=== PATIENT | male | born 1960 | race Caucasian/White ===

== ENCOUNTER 2019-04-30 06:59 | Observation (INO) | payer BC ==
[2019-04-30] MEDS ORDERED: Aspirin 81 MG Tab.Chew PO ONE (07:15)
[2019-04-30] MEDS ORDERED: Sodium Chloride 0.9% 2.5 ML Syringe FLUSH PRN (07:17)
[2019-04-30] MEDS ORDERED: Sodium Chloride 0.9% 10 ML Syringe FLUSH PRN (07:17)
--- NOTE | 2019-04-30 07:22 | EDM.PDOC ---
ED HPI GENERAL MEDICAL PROBLEM - General Chief Complaint: Chest Pain Stated Complaint: CHEST PAIN Time Seen by Provider: 04/30/19 07:08 - History of Present Illness INITIAL COMMENTS - FREE TEXT/NARRATIVE: HISTORY AND PHYSICAL: History of present illness: The patient is a 59-year-old male with a history of hypertension hypercholesterolemia tno-oiiomth-dbjodfqjz/requiring diabetes who had a PTCA with stent approximately 3 months ago at [facility] in [place] and follows with Dr. Leone his sr. strategic sourcing manager as well as Dr. Juice Argueta at [facility] and presents today with complaints of not feeling right this morning, lightheadedness and a stabbing left-sided chest pain that started this morning when he was doing his morning activities. The patient says that since he had his stent he has had chest pain on and off more so the last 2 days as his been doing more activities at home and working in the forearm. He says that he never takes the sublingual nitroglycerin he was given by the sr. strategic sourcing manager because he is "peak had it". He said that yesterday while he was doing activities he did have some shortness of breath and some mild discomfort but he kept working and it seemed to go away by itself. He slept all night and woke up this morning and felt fine and was doing his morning activities when he felt somewhat lightheaded and dizzy and then started having this sharp stabbing pain at the left lateral side of his chest wall which radiated to the right chest. He currently rates it as a 4-5/10 but he did not take any nitroglycerin prior to coming here. He is on Plavix and he finished cardiac rehabilitation recently. He has no abdominal complaints such as pain nausea vomiting or diarrhea he currently has no shortness of breath dizziness or lightheadedness but says he doesn't feel quite right. Currently his blood pressure is elevated in the ED and he says that is very high for him. He states compliance with his medication. He has no leg pain or swelling and does not feel that the discomfort he is feeling is musculoskeletal. He says that prior to his cardiac intervention and he didn't really have much chest pain. I did review the patient's nuclear medicine stress test that was performed here the end of November, prior to his cardiac intervention, which did reveal a good ejection fraction in the 50s at rest and diminished ejection fraction with activity. It also revealed multilevel disease. The patient admits was told by his sr. strategic sourcing manager that although he had only one stent placed she did have other areas of disease that did not require stenting. Review of systems: As per history of present illness and below otherwise all systems reviewed and negative. Past medical history: As per history of present illness and as reviewed below otherwise noncontributory. Surgical history: As per history of present illness and as reviewed below otherwise noncontributory. Social history: No reported history of drug or alcohol abuse. Family history: As per history of present illness and as reviewed below otherwise noncontributory. Physical exam: General: Well-developed well-nourished man who is nontoxic and vital signs are noted by me. HEENT: Atraumatic, normocephalic, , negative for conjunctival pallor or scleral icterus, mucous membranes moist, throat clear, neck supple, nontender, trachea midline. Lungs: Clear to auscultation, breath sounds equal bilaterally, chest nontender. I cannot reproduce the pain on palpation Heart: S1S2, regular rate and rhythm no overt murmurs Abdomen: Soft, nondistended, nontender. Negative for masses or hepatosplenomegaly. NABS Pelvis: Stable nontender. Genitourinary: Deferred. Rectal: Deferred. Extremities: Atraumatic, negative for cords or calf pain. Neurovascular unremarkable. No pedal edema or leg asymmetry Neuro: Awake, alert, oriented. Cranial nerves II through XII unremarkable. Cerebellum unremarkable. Motor and sensory unremarkable throughout. Exam nonfocal. Skin: Normal turgor no diaphoresis no overt rashes or lesions Diagnostics: EKG chest x-ray CBC CMP INR troponin Therapeutics: IV O2 monitor aspirin sublingual nitroglycerin and Nitropaste After 2 sublingual nitros the patient's chest pain is gone. We will place Nitropaste and continue to monitor the workup for observation admission 0755: Case was discussed with Dr. Hernandez who accepts the patient for observation admission Impression: Chest pain, history of angioplasty and stent Definitive disposition and diagnosis as appropriate pending reevaluation and review of above. left chest Pain Score (Numeric/FACES): 5 - Related Data Allergies Allergy/AdvReac Type Severity Reaction Status Date / Time No Known Allergies Allergy Verified 04/30/19 07:08 Past Medical History Cardiovascular History: Reports: High Cholesterol, Hypertension Endocrine/Metabolic History: Reports: Diabetes, Type II - Infectious Disease History Infectious Disease History: Reports: None - Past Surgical History Cardiovascular Surgical History: Reports: Coronary Artery Stent Social & Family History - Family History Family Medical History: Noncontributory - Tobacco Use Smoking Status *Q: Never Smoker - Recreational Drug Use Recreational Drug Use: No ED ROS GENERAL - Review of Systems Review Of Systems: ROS reveals no pertinent complaints other than HPI. ED EXAM, GENERAL - Physical Exam Exam: See Below (See dictation) Course - Vital Signs Last Recorded V/S: Last Vital Signs Temp 35.8 C 04/30/19 07:05 Pulse 63 04/30/19 07:37 Resp 18 04/30/19 07:37 BP 153/99 H 04/30/19 07:37 Pulse Ox 99 04/30/19 07:37 - Orders/Labs/Meds Orders: Active Orders 24 hr Category Date Time Status Cardiac Monitoring [RC] . DIRECTED Care 04/30/19 07:15 Active EKG Documentation Completion [RC] STAT Care 04/30/19 07:15 Active Oxygen Therapy, ED [RC] ASDIRECTED Care 04/30/19 07:15 Active Pulse Oximetry [RC] ASDIRECTED Care 04/30/19 07:15 Active Nitroglycerin [Nitrostat] Med 04/30/19 07:15 Active 0.4 mg SL Q5M PRN Sodium Chloride 0.9% [Saline Flush] Med 04/30/19 07:17 Active 10 ml FLUSH ASDIRECTED PRN Sodium Chloride 0.9% [Saline Flush] Med 04/30/19 07:17 Active 2.5 ml FLUSH ASDIRECTED PRN Saline Lock Insert [OM.PC] Stat Oth 04/30/19 07:15 Ordered Medication Orders Nitroglycerin (Nitrostat) 0.4 mg SL Q5M PRN PRN Reason: Chest Pain Last Admin: 04/30/19 07:31 Dose: 0.4 mg Admin: 04/30/19 07:25 Dose: 0.4 mg Sodium Chloride (Saline Flush) 10 ml FLUSH ASDIRECTED PRN PRN Reason: Keep Vein Open Last Admin: 04/30/19 07:26 Dose: 10 ml Sodium Chloride (Saline Flush) 2.5 ml FLUSH ASDIRECTED PRN PRN Reason: Keep Vein Open Last Admin: 04/30/19 07:26 Dose: 2.5 ml Labs: Laboratory Tests 04/30/19 04/30/19 04/30/19 Range/Units 07:08 07:08 07:08 WBC 5.81 (4.0-11.0) K/uL RBC 5.66 (4.50-5.90) M/uL Hgb 16.7 (13.0-17.0) g/dL Hct 47.6 (38.0-50.0) % MCV 84.1 (80.0-98.0) fL MCH 29.5 (27.0-32.0) pg MCHC 35.1 (31.0-37.0) g/dL RDW Std Deviation 39.4 (28.0-62.0) fl RDW Coeff of Elier 13 (11.0-15.0) % Plt Count 172 (150-400) K/uL MPV 11.90 (7.40-12.00) fL Neut % (Auto) 43.7 L (48.0-80.0) % Lymph % (Auto) 44.1 H (16.0-40.0) % [place] % (Auto) 10.0 (0.0-15.0) % Eos % (Auto) 1.9 (0.0-7.0) % Baso % (Auto) 0.3 (0.0-1.5) % Neut # (Auto) 2.5 (1.4-5.7) K/uL Lymph # (Auto) 2.6 H (0.6-2.4) K/uL [place] # (Auto) 0.6 (0.0-0.8) K/uL Eos # (Auto) 0.1 (0.0-0.7) K/uL Baso # (Auto) 0.0 (0.0-0.1) K/uL Nucleated RBC % 0.0 /100WBC Nucleated RBCs # 0 K/uL INR 0.97 Sodium 139 (136-148) mmol/L Potassium 3.6 (3.5-5.1) mmol/L Chloride 102 (98-107) mmol/L Carbon Dioxide 26.8 (21.0-32.0) mmol/L BUN 28 H (7.0-18.0) mg/dL Creatinine 1.2 (0.8-1.3) mg/dL Est Cr Clr Drug Dosing 67.92 mL/min Estimated GFR (MDRD) > 60.0 ml/min Glucose 207 H (74-106) mg/dL Calcium 9.2 (8.5-10.1) mg/dL Total Bilirubin 0.4 (0.2-1.0) mg/dL AST 22 (15-37) IU/L ALT 52 (14-63) IU/L Alkaline Phosphatase 56 (46-116) U/L Troponin I < 0.050 (0.000-0.056) ng/mL Total Protein 8.4 H (6.4-8.2) g/dL Albumin 4.7 (3.4-5.0) g/dL Globulin 3.7 (2.6-4.0) g/dL Albumin/Globulin Ratio 1.3 (0.9-1.6) Meds: Medications Generic Name Dose Route Start Last Admin Trade Name Freonel PRN Reason Stop Dose Admin Nitroglycerin 0.4 mg 04/30/19 07:15 04/30/19 07:31 Nitrostat SL 0.4 mg Q5M PRN Administration Chest Pain Sodium Chloride 10 ml 04/30/19 07:17 04/30/19 07:26 Saline Flush FLUSH 10 ml ASDIRECTED PRN Administration Keep Vein Open Sodium Chloride 2.5 ml 04/30/19 07:17 04/30/19 07:26 Saline Flush FLUSH 2.5 ml ASDIRECTED PRN Administration Keep Vein Open Discontinued Medications Generic Name Dose Route Start Last Admin Trade Name Freonel PRN Reason Stop Dose Admin Aspirin 324 mg 04/30/19 07:15 04/30/19 07:25 Aspirin PO 04/30/19 07:16 324 mg ONETIME ONE Administration Nitroglycerin 0.5 gm 04/30/19 07:46 Nitro-Bid 2% TOP 04/30/19 07:47 ONETIME ONE Departure - Departure Time of Disposition: 07:57 Disposition: Refer to Observation Condition: Good Clinical Impression: Chest pain Qualifiers: Chest pain type: unspecified Qualified Code(s): R07.9 - Chest pain, unspecified - Discharge Information Referrals: PCP,None [Primary Care Provider] - Forms: ED Department Discharge - My Orders Last 24 Hours: My Active Orders 04/30/19 07:15 Cardiac Monitoring [RC] . DIRECTED EKG Documentation Completion [RC] STAT Oxygen Therapy, ED [RC] ASDIRECTED Pulse Oximetry [RC] ASDIRECTED Nitroglycerin [Nitrostat] 0.4 mg SL Q5M PRN Saline Lock Insert [OM.PC] Stat 04/30/19 07:17 Sodium Chloride 0.9% [Saline Flush] 10 ml FLUSH ASDIRECTED PRN Sodium Chloride 0.9% [Saline Flush] 2.5 ml FLUSH ASDIRECTED PRN - Assessment/Plan Last 24 Hours: My Active Orders 04/30/19 07:15 Cardiac Monitoring [RC] . DIRECTED EKG Documentation Completion [RC] STAT Oxygen Therapy, ED [RC] ASDIRECTED Pulse Oximetry [RC] ASDIRECTED Nitroglycerin [Nitrostat] 0.4 mg SL Q5M PRN Saline Lock Insert [OM.PC] Stat 04/30/19 07:17 Sodium Chloride 0.9% [Saline Flush] 10 ml FLUSH ASDIRECTED PRN Sodium Chloride 0.9% [Saline Flush] 2.5 ml FLUSH ASDIRECTED PRN
[2019-04-30] MEDS: Nitroglycerin 0.4 MG Tab.SL SL PRN ×2 (07:25→07:31)
--- NOTE | 2019-04-30 07:45 | CR ---
INDICATION: Chest pain and shortness of breath TECHNIQUE: Chest 1 views COMPARISON: March 01, 2010 FINDINGS: Cardiovascular and mediastinum: Heart size and vasculature are normal in caliber and appearance. Lungs and pleural spaces: Lungs are clear. No sign of infiltrate or mass. No sign of pleural effusion. No pneumothorax. Bones and soft tissues: No significant findings. IMPRESSION: No acute findings and no significant changes from the prior exam. Dictated by Brock Webber MD @ Apr 30 2019 7:42AM Signed by Dr. Brock Webber @ Apr 30 2019 7:44AM
[2019-04-30] MEDS ORDERED: Nitroglycerin 2% Oint 1 GM UD Packet TOP ONE (07:46)
[2019-04-30 07:47] LABS: CHLORIDE,CL 102 mmol/L (98-107); SODIUM,NA 139 mmol/L (136-148)
[2019-04-30] MEDS ORDERED: Clopidogrel 75 MG Tab PO SCH (09:00)
[2019-04-30] MEDS ORDERED: Losartan 50 MG Tab PO SCH (09:00)
[2019-04-30] MEDS ORDERED: Rosuvastatin 10 MG Tab PO SCH ×2 (09:00→21:00)
[2019-04-30] MEDS ORDERED: Metoprolol Succinate 25 MG Tab.ER PO SCH ×2 (09:00→21:00)
[2019-04-30] MEDS ORDERED: Acetaminophen 325 MG Tab PO PRN (09:02)
[2019-04-30] MEDS ORDERED: Ondansetron 4 MG/2 ML SDV IVPUSH PRN (09:02)
--- NOTE | 2019-04-30 09:04 | PCM.HP ---
H&P History of Present Illness - General Date of Service: 04/30/19 Admit Problem/Dx: Admission Diagnosis/Problem Admission Diagnosis/Problem Chest pain Source of Information: Patient - History of Present Illness Initial Comments - Free Text/Narative: This 59 year old male with pmh of recent stenting to LAD 3 months ago, CAD, HTN and DM type 2 presented to the ED this morning, not feeling right. He reports he woke up fine and then was stretching and felt off. He describes this as lightheaded, dizzy. He rested and then showered and felt better, but then as he was driving to work he felt worse again and had some mild L chest discomfort, but this comfort has been intermittent for the last couple weeks. IT is a sharp pain to L chest. It sometimes radiates to R chest. He felt cool, no diaphoresis or nausea. No palpitations. Nothing seemed to worsen the pain. He checked his BP and it was elevated from normal at 150/90s. He arrived to the ED, given ASA and nitro x1 with helped pain to 0-1/10. BP was noted on arrival to be 190/108, HR in the 70s. He reports he took his Plavix and Losartan this morning as scheduled. He reports he has been complaint on all medications. He reports taking half tab of statin as full dose makes him very tired. In the ED, CBC WNL. BUN 28, Cr 1.2. Troponin negative. CXR unremarkable. EKG revealed SR with no acute ST changes. BP improved with nitro SL x 1 and Nitro paste applied. BP improved to 150/90s. Broomcorn Sorter, Dr Parmar left chest Pain Score (Numeric/FACES): 5 - Related Data Allergies/Adverse Reactions: Allergies Allergy/AdvReac Type Severity Reaction Status Date / Time No Known Allergies Allergy Verified 04/30/19 17:43 Home Medications: Home Meds Clopidogrel [Plavix] 75 mg PO DAILY 04/30/19 [History] Losartan Potassium 25 mg PO DAILY 04/30/19 [History] Metoprolol Succinate [Toprol XL] 25 mg PO BEDTIME 04/30/19 [History] Nitroglycerin [Nitrostat] 0.4 mg SL ASDIRECTED PRN 04/30/19 [History] Rosuvastatin Calcium 40 mg PO BEDTIME 04/30/19 [History] metFORMIN HCl [Metformin HCl] 1,000 mg PO BID 04/30/19 [History] Past Medical History Cardiovascular History: Reports: CAD, High Cholesterol, Hypertension, Stents ( LAD) Respiratory History: Reports: None. Denies: COPD, PE Gastrointestinal History: Reports: None Genitourinary History: Reports: None Psychiatric History: Reports: None Endocrine/Metabolic History: Reports: Diabetes, Type II Oncologic (Cancer) History: Reports: Prostate - Infectious Disease History Infectious Disease History: Reports: None - Past Surgical History Cardiovascular Surgical History: Reports: Coronary Artery Stent Male Surgical History: Reports: Prostatectomy (Radical) Social & Family History - Family History Family Medical History: Noncontributory - Tobacco Use Smoking Status *Q: Former Smoker Used Tobacco, but Quit: No Month/Year Tobacco Last Used: 1984 - Alcohol Use Alcohol Use History: No - Recreational Drug Use Recreational Drug Use: No - Living Situation & Occupation Living situation: Reports: Occupation: Employed H&P Review of Systems - Review of Systems: Review Of Systems: See Below General: Denies: Fever, Chills, Malaise HEENT: Reports: Vertigo. Denies: Hearing Changes Pulmonary: Reports: No Symptoms. Denies: Shortness of Breath Cardiovascular: Reports: Lightheadedness, Blood Pressure Problem. Denies: Chest Pain, Palpitations, Dyspnea on Exertion, Syncope Gastrointestinal: Reports: No Symptoms. Denies: Black Stool, Bloody Stool, Nausea, Vomiting Genitourinary: Reports: No Symptoms. Denies: Dysuria, Frequency, Burning Musculoskeletal: Reports: No Symptoms Skin: Reports: No Symptoms Psychiatric: Reports: No Symptoms Neurological: Reports: No Symptoms Hematologic/Lymphatic: Reports: No Symptoms Immunologic: Reports: No Symptoms Exam - Exam Exam: See Below - Vital Signs Vital Signs: Last Vital Signs Temp 96.5 F 04/30/19 07:05 Pulse 62 04/30/19 07:57 Resp 18 04/30/19 07:57 BP 151/102 H 04/30/19 07:57 Pulse Ox 98 04/30/19 07:57 Weight: 88.451 kg - Exam General: Alert, Oriented, Cooperative HEENT: Conjunctiva Clear, Mucosa Moist & [place], Posterior Pharynx Clear Lungs: Clear to Auscultation, Normal Respiratory Effort Cardiovascular: Regular Rate, Regular Rhythm, Normal S1, Normal S2. No: Irregular Rhythm, Tachycardia, Systolic Murmur GI/Abdominal Exam: Normal Bowel Sounds, Soft, Non-Tender, No Distention Extremities: Normal Inspection, Normal Range of Motion, Non-Tender, No Pedal Edema Neuro Extensive - Mental Status: Alert, Oriented x3 Neuro Extensive - Motor, Sensory, Reflexes: CN II-XII Intact Psychiatric: Alert, Normal Affect, Normal Mood - Patient Data Lab Results Last 24 hrs: Laboratory Results - last 24 hr 04/30/19 04/30/19 04/30/19 Range/Units 07:08 07:08 07:08 WBC 5.81 (4.0-11.0) K/uL RBC 5.66 (4.50-5.90) M/uL Hgb 16.7 (13.0-17.0) g/dL Hct 47.6 (38.0-50.0) % MCV 84.1 (80.0-98.0) fL MCH 29.5 (27.0-32.0) pg MCHC 35.1 (31.0-37.0) g/dL RDW Std Deviation 39.4 (28.0-62.0) fl RDW Coeff of Elier 13 (11.0-15.0) % Plt Count 172 (150-400) K/uL MPV 11.90 (7.40-12.00) fL Neut % (Auto) 43.7 L (48.0-80.0) % Lymph % (Auto) 44.1 H (16.0-40.0) % [place] % (Auto) 10.0 (0.0-15.0) % Eos % (Auto) 1.9 (0.0-7.0) % Baso % (Auto) 0.3 (0.0-1.5) % Neut # (Auto) 2.5 (1.4-5.7) K/uL Lymph # (Auto) 2.6 H (0.6-2.4) K/uL [place] # (Auto) 0.6 (0.0-0.8) K/uL Eos # (Auto) 0.1 (0.0-0.7) K/uL Baso # (Auto) 0.0 (0.0-0.1) K/uL Nucleated RBC % 0.0 /100WBC Nucleated RBCs # 0 K/uL INR 0.97 Sodium 139 (136-148) mmol/L Potassium 3.6 (3.5-5.1) mmol/L Chloride 102 (98-107) mmol/L Carbon Dioxide 26.8 (21.0-32.0) mmol/L BUN 28 H (7.0-18.0) mg/dL Creatinine 1.2 (0.8-1.3) mg/dL Est Cr Clr Drug Dosing 67.92 mL/min Estimated GFR (MDRD) > 60.0 ml/min Glucose 207 H (74-106) mg/dL Calcium 9.2 (8.5-10.1) mg/dL Total Bilirubin 0.4 (0.2-1.0) mg/dL AST 22 (15-37) IU/L ALT 52 (14-63) IU/L Alkaline Phosphatase 56 (46-116) U/L Troponin I < 0.050 (0.000-0.056) ng/mL Total Protein 8.4 H (6.4-8.2) g/dL Albumin 4.7 (3.4-5.0) g/dL Globulin 3.7 (2.6-4.0) g/dL Albumin/Globulin Ratio 1.3 (0.9-1.6) Result Diagrams: 04/30/19 07:08 04/30/19 07:08 EKG INTERPRETATION Rhythm: NSR P-Wave: Present QRS: Normal ST-T: Normal QT: Normal - Problem List (1) Chest pain SNOMED Code(s): 61437072 ICD Code: R07.9 - CHEST PAIN, UNSPECIFIED Status: Acute Current Visit: Yes Qualifiers: Chest pain type: unspecified Qualified Code(s): R07.9 - Chest pain, unspecified (2) CAD (coronary artery disease) SNOMED Code(s): 04836240 ICD Code: I25.10 - ATHSCL HEART DISEASE OF [place] CORONARY ARTERY W/O ANG PCTRS Status: Chronic Current Visit: Yes Qualifiers: Coronary Disease-Associated Artery/Lesion type: [place] artery [place] vs. transplanted heart: [place] heart Associated angina: without angina Qualified Code(s): I25.10 - Atherosclerotic heart disease of [place] coronary artery without angina pectoris (3) HTN (hypertension) SNOMED Code(s): 85909843 ICD Code: I10 - ESSENTIAL (PRIMARY) HYPERTENSION Status: Chronic Current Visit: Yes Qualifiers: Hypertension type: essential hypertension Qualified Code(s): I10 - Essential (primary) hypertension (4) DM type 2 (diabetes mellitus, type 2) SNOMED Code(s): 90435702 ICD Code: E11.9 - TYPE 2 DIABETES MELLITUS WITHOUT COMPLICATIONS Status: Chronic Current Visit: Yes Qualifiers: Diabetes mellitus termite control servicer insulin use: without termite control servicer use Diabetes mellitus complication status: without complication Qualified Code(s): E11.9 - Type 2 diabetes mellitus without complications (5) Stented coronary artery Status: Chronic Current Visit: Yes Problem List Initiated/Reviewed/Updated: Yes Orders Last 24hrs: Active Orders 24 hr Category Date Time Status Patient Status [ADT] Stat ADT 04/30/19 08:01 Active Ambulate [RC] ASDIRECTED Care 04/30/19 09:02 Ordered Cardiac Monitoring [RC] . DIRECTED Care 04/30/19 07:15 Active EKG Documentation Completion [RC] STAT Care 04/30/19 07:15 Active Intake and Output [RC] QSHIFT Care 04/30/19 09:02 Ordered Oxygen Therapy [RC] PRN Care 04/30/19 09:02 Ordered Oxygen Therapy, ED [RC] ASDIRECTED Care 04/30/19 07:15 Active Pulse Oximetry [RC] ASDIRECTED Care 04/30/19 07:15 Active Telemetry Monitoring [Cardiac Monitoring] [RC] . Care 04/30/19 08:20 Active DIRECTED VTE/DVT Education [RC] PER UNIT ROUTINE Care 04/30/19 09:02 Ordered Vital Signs [RC] Q4H Care 04/30/19 09:02 Ordered Heart Healthy Diet [DIET] Diet 04/30/19 Breakfast Ordered Acetaminophen [Tylenol] Med 04/30/19 09:02 Ordered 650 mg PO Q4H PRN Clopidogrel [Plavix] Med 04/30/19 09:00 Ordered 75 mg PO BID Insulin Aspart [NovoLOG] Med 04/30/19 09:01 Ordered See Protocol SUBCUT TIDAC Losartan Potassium Med 04/30/19 09:00 Ordered 25 mg PO DAILY Metoprolol Succinate [Toprol XL] Med 04/30/19 09:00 Ordered 25 mg PO DAILY Nitroglycerin [Nitrostat] Med 04/30/19 07:15 Active 0.4 mg SL Q5M PRN Ondansetron [Zofran] Med 04/30/19 09:02 Ordered 4 mg IVPUSH Q4H PRN Rosuvastatin Calcium [Rosuvastatin Calcium] Med 04/30/19 09:00 Ordered 40 mg PO DAILY Sodium Chloride 0.9% [Saline Flush] Med 04/30/19 07:17 Active 10 ml FLUSH ASDIRECTED PRN Sodium Chloride 0.9% [Saline Flush] Med 04/30/19 07:17 Active 2.5 ml FLUSH ASDIRECTED PRN Saline Lock Insert [OM.PC] Stat Oth 04/30/19 07:15 Ordered Resuscitation Status Routine Resus Stat 04/30/19 09:02 Ordered Medication Orders Acetaminophen (Tylenol) 650 mg PO Q4H PRN PRN Reason: Pain (mild 1-3) Clopidogrel Bisulfate (Plavix) 75 mg PO BID [facility] Insulin Aspart (Novolog) 0 unit SUBCUT TIDAC AGUSTIN; Protocol Metoprolol Succinate (Toprol Xl) 25 mg PO DAILY [facility] Nitroglycerin (Nitrostat) 0.4 mg SL Q5M PRN PRN Reason: Chest Pain Last Admin: 04/30/19 07:31 Dose: 0.4 mg Admin: 04/30/19 07:25 Dose: 0.4 mg Non-Formulary Medication (Losartan Potassium) 25 mg PO DAILY [facility] Non-Formulary Medication (Rosuvastatin Calcium [Rosuvastatin Calcium]) 40 mg PO DAILY [facility] Ondansetron HCl (Zofran) 4 mg IVPUSH Q4H PRN PRN Reason: Nausea Sodium Chloride (Saline Flush) 10 ml FLUSH ASDIRECTED PRN PRN Reason: Keep Vein Open Last Admin: 04/30/19 07:26 Dose: 10 ml Sodium Chloride (Saline Flush) 2.5 ml FLUSH ASDIRECTED PRN PRN Reason: Keep Vein Open Last Admin: 04/30/19 07:26 Dose: 2.5 ml Assessment/Plan Comment:: This 59 year old male admitted with chest pain and HTN 1. Chest pain: Will trend enzymes, monitor on telemetry. Will set up close follow up with Dr Parmar for further evaluation with recent stent placement. Intermittent L chest pain over the last 2 weeks with lightheadedness this morning with elevated BP. BP improved after Nitro paste as did feelings of lightheadedness. Nitro paste to be removed and BP to be monitored. Lipid panel obtained, which is controlled with statin therapy. Continue all home medications. Consider increasing ROSEMARIE if BP remains uncontrolled. Continue Plavix and ASA. 2. DM type 2: Monitor TIDAC BS with SSI. Holding Metformin while in hospital. VTE prophylaxis: SCDs and ambulation Dispo: this evening, if close follow up with [facility] is secured and Troponins negative. Discharge Plan: Tobin did well today. BP remained controlled with continuation of home medications, once Nitro paste was removed. NO further dizziness of lightheadedness and no chest pain. Troponins negative x 3 no acute changes on telemetry, ACS ruled out. He is to follow up with Dr Parmar next week as scheduled. He was encouraged to monitor BP until his appointment. He was encouraged to refrain from strenuous activity until he sees Dr Parmar. He is to return to ED or clinic if concerns should arise. Has nitro SL at home for chest pain.
[2019-04-30] MEDS: Insulin Aspart 100 Units/ML 3 ML Pen SUBCUT SCH ×3 (10:10→17:01)
[2019-04-30] MEDS ORDERED: Losartan 50 MG Tab PO ONE (11:42)
[2019-05-01] MEDS ORDERED: Clopidogrel 75 MG Tab PO SCH (09:00)
== END 2019-04-30 20:07 | disposition home or self-care (01) ==
LOC: MW.ED 06:59 → MW.MS 08:01
PROVIDERS: ADMIT Internal Medicine; ATTEND Internal Medicine
DX: R07.89 Other chest pain (principal); I25.10 Atherosclerotic heart disease of native coronary artery without angina pectoris; I10 Essential (primary) hypertension; E11.9 Type 2 diabetes mellitus without complications; E78.00 Pure hypercholesterolemia, unspecified; Z95.5 Presence of coronary angioplasty implant and graft; Z87.891 Personal history of nicotine dependence; Z79.02 Long term (current) use of antithrombotics/antiplatelets; Z79.84 Long term (current) use of oral hypoglycemic drugs; Z79.899 Other long term (current) drug therapy
CPT/HCPCS: 71045; 71045-26; 80053; 80061; 82962; 84484; 85025; 85610; 93005; 99285-25; A9270-GY; J1815-GY

== ENCOUNTER 2022-03-01 06:15 | Emergency (ER) | payer BC ==
[2022-03-01] MEDS: Labetalol 100 MG/20 ML MDV IVPUSH ONE ×2 (06:41→06:58)
[2022-03-01 08:03] LABS: BLOOD UREA NITROGEN,BUN 16 mg/dL (7.0-18.0); CARBON DIOXIDE,CO2 23.8 mmol/L (21.0-32.0); CHLORIDE,CL 106 mmol/L (98-107); GLUCOSE RANDOM 174 mg/dL (74-106); POTASSIUM,K 3.8 mmol/L (3.5-5.1); SODIUM,NA 142 mmol/L (136-148)
== END 2022-03-01 11:23 | disposition home or self-care (01) ==
LOC: MW.ED 06:15
DX: R42 Dizziness and giddiness (principal); I10 Essential (primary) hypertension; I25.10 Atherosclerotic heart disease of native coronary artery without angina pectoris; E11.9 Type 2 diabetes mellitus without complications; Z79.899 Other long term (current) drug therapy; Z79.84 Long term (current) use of oral hypoglycemic drugs
CPT/HCPCS: 36415; 70450; 70450-26; 70551; 70551-26; 71045; 71045-26; 80053; 84484; 85025; 93005; 99285-25; J3490